=== PATIENT | male | born 1935 | race Caucasian/White ===

== ENCOUNTER 2016-05-16 09:27 | Inpatient (IN) | payer OTHER ==
--- NOTE | ~2016-05-16 | DS ---
Discharge Summary [facility] [address] [place]. [address] NAME: LINDA HINES JR : 37 STATUS : DIS IN PAT#: [id number] AGE: 80 ADM/REG DATE : 05/16/16 MR#: [id number] REPORT SERV DATE: 05/19/16 DICTATED BY: HOLLY MARTINEZ DATE: 05/18/16 REPORT STATUS : Draft TRANSCRIBED BY: MODL DATE: 05/18/16 ADMISSION DATE: 05/16/2016 DISCHARGE DATE: 05/18/2016 PRINCIPAL DIAGNOSIS: Intractable nausea and vomiting. 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 HISTORY OF PRESENT ILLNESS: Please see dictation, 05/16/2016. HOSPITAL COURSE: Admitted with intractable nausea and vomiting with severe abdominal pain. The patient had a history previously of bowel obstruction due to his metastatic malignancy. He underwent EGD and found not to have obstruction at this time. In fact, the patient tolerated advancement of his diet and advancement of his medications and actually just wished to go home. He actually had some improper behavior during the hospitalization including smoking in the hospital room and smoking in the lobby with extinguishing his cigarettes on the carpet of the lobby. Arrangements were to be made for Hospice facility; however, with that behavior, he had to be dismissed from the hospital and to arrange any further hospice care himself. As he was tolerating p.o. and p.o. pain medicines, it was felt that he had no further need for hospitalization. Anyway, I counseled his family regarding his ongoing care. He was released with Marinol and Reglan on a scheduled basis, Zofran and Phenergan p.r.n., pain medicines, and other therapies were left unchanged and hospice care will be resumed at home. GABY/ELOINA Holly Martinez M.D. / [id number] CC: Hilton Crowder M.D. Davey B. Daniel, M.D. Walter Rose, M.D.
--- NOTE | ~2016-05-16 | CN ---
Consultation Report [facility] [address] [place]. [address] NAME: LINDA HINES JR : 37 STATUS : DIS IN PAT#: [id number] AGE: 80 ADM/REG DATE : 05/16/16 MR#: [id number] REPORT SERV DATE: 05/18/16 DICTATED BY: RODRIGO TROY DATE: 05/18/16 REPORT STATUS : Draft TRANSCRIBED BY: MODL DATE: 05/18/16 CONSULTATION DATE OF CONSULTATION: 05/17/2016 Dictated by Jigna Thomas NP, dictating for Rodrigo Troy M.D. REASON FOR CONSULTATION: Request for EGD for evaluation of gastrojejunostomy patency. HISTORY OF PRESENT ILLNESS: This 80-year-old male was diagnosed with metastatic urothelial cancer after several years of invasive bladder cancer. He is status post right nephrectomy and ureterectomy in 2009. Due to metastasis and recurrence of TCC right renal bed with encroachment and duodenal obstruction, he had a palliative GJ bypass on 04/24/[address] Joby Humphrey. He has been unable to keep food and liquids down both before and after surgery. He was at home on hospice and hospice has since been withdrawn so he can be hospitalized for relief of ongoing nausea, vomiting, and suffering. The patient was last seen by Dr. Troy on 09/14/2005 for EGD for surveillance of Mari's esophagus. This was remarkable for Mari's esophagus without dysplasia on biopsies, Schatzki's ring, and small hiatal hernia. He also had a screening colonoscopy on 07/01/2012 that was normal. PAST MEDICAL HISTORY: 1. Metastatic urothelial cancer with duodenal obstruction status post palliative GJ bypass. 2. Transitional cell renal carcinoma. 3. GERD. 4. Mari's esophagus. 5. Osteoarthritis. 6. Degenerative joint disease. 7. Atrial fibrillation. 8. Chronic kidney disease. 9. Peripheral arterial disease. 10.Hypertension. PAST SURGICAL HISTORY: Status post femoral-popliteal bypass, cholecystectomy, umbilical hernia repair, multiple several stents, cystoscopy, TURBT, right nephrectomy, and gastrojejunostomy bypass surgery. ALLERGIES: GABAPENTIN. MEDICATIONS: Home medications include aspirin 325 mg daily, Decadron, diltiazem, hydrocodone 10/325 mg q.6 hours p.r.n., Levsin p.r.n., morphine p.r.n., omeprazole 20 mg daily before breakfast, ondansetron 8 mg q.8 hours p.r.n. nausea vomiting, Trental, Irisot one p.o. Consultation Report [place] [place] [address] [place]. [address] NAME: LINDA HINES JR : 37 STATUS : DIS IN PAT#: [id number] AGE: 80 ADM/REG DATE : 05/16/16 MR#: [id number] REPORT SERV DATE: 05/18/16 DICTATED BY: RODRIGO TROY DATE: 05/18/16 REPORT STATUS : Draft TRANSCRIBED BY: ELOINA DATE: 05/18/16 twice daily, lorazepam p.r.n., haloperidol p.r.n., and octreotide. Upon hospitalization Lovenox 40 mg subcu has been added daily at 2 p.m., Reglan 10 mg IV q.6 hours, octreotide 50 mcg subcu q.8 hours, and Dilaudid p.r.n. SOCIAL HISTORY: The patient smokes one pack per day of cigarettes. He denies any alcohol use. FAMILY HISTORY: Noncontributory. REVIEW OF SYSTEMS: Otherwise unremarkable for constitutional, endocrine, neurologic, psychiatric, ocular, ENT, pulmonary, cardiovascular, GI, , rheumatologic symptoms except for as noted above. PHYSICAL EXAMINATION: VITAL SIGNS: Temperature 98.1, pulse 72, respirations 16, and BP 198/86. GENERAL: The patient is drowsy but easily aroused. He is alert and oriented x3. He is chronically ill appearing. LUNGS: Clear to auscultation bilaterally. CARDIOVASCULAR: Regular rate and rhythm without murmur. ABDOMEN: Soft, mildly distended, active bowel sounds, nontender, healing incision with expected thickening in left upper quadrant, scars midline and right paramedian. No masses or hepatosplenomegaly noted. LABORATORY DATA: WBC 8.9, hemoglobin low at 10.5, platelets normal at 294, INR normal at 1.1, potassium normal at 4.8, CO2 of 23, BUN mildly elevated at 1.56. CT of the abdomen and pelvis without contrast reveals small amount of bleeding on the right in the vicinity of the previous biopsy presumably related to recent biopsy, fatty liver, postsurgical changes in the left upper quadrant, nodular changes in left lung base. IMPRESSION: 1. Persistent nausea and vomiting, status post palliative GJ bypass. 2. Advanced urothelial carcinoma with recent duodenal obstruction and gastrojejunal bypass. 3. History of atrial fibrillation. 4. History of chronic kidney disease. 5. History of peripheral arterial disease. PLAN: We will proceed with EGD today for further evaluation of patency of gastrojejunostomy. I reviewed risks and benefits of procedure with the patient. He is willing to proceed. /ELOINA Consultation Report [facility] [address] [place]. [address] NAME: LINDA HINES JR : 37 STATUS : DIS IN PAT#: [id number] AGE: 80 ADM/REG DATE : 05/16/16 MR#: [id number] REPORT SERV DATE: 05/18/16 DICTATED BY: RODRIGO TROY DATE: 05/18/16 REPORT STATUS : Draft TRANSCRIBED BY: ELOINA DATE: 05/18/16 Rodrigo Troy M.D. / [id number] CC: Hilton Crowder M.D. Richard L Yap, M.D. Christopher Lesar, M.D. Davey B. Daniel, M.D. Gordon Graham, M.D. Walter Rose, M.D. Oliver Benton III, M.D.
--- NOTE | ~2016-05-16 | OP ---
Record Of Operation [facility] [address] [place]. [address] NAME: LINDA HINES JR : 37 STATUS : ADM IN PAT#: [id number] AGE: 80 ADM/REG DATE : 05/16/16 MR#: [id number] REPORT SERV DATE: 05/18/16 DICTATED BY: RODRIGO TROY DATE: 05/17/16 REPORT STATUS : Draft TRANSCRIBED BY: MODMary DATE: 05/17/16 DATE OF PROCEDURE: 05/17/2016 PROCEDURE: Esophagogastroduodenoscopy with antral biopsies. INDICATION: Nausea and vomiting with proximal duodenal obstruction due to metastatic urothelial cancer. MEDICATIONS: Propofol. DEPARTMENT STORE GENERAL MANAGER: Rodrigo Troy M.D. COMPLICATIONS: None. HISTORY: See consult note for details. The potential risks and limitations of the examination were reviewed with the patient and his and he elected to proceed. FINDINGS: Esophagus-there was some fullness of the veins in the distal esophagus, potentially consistent with mild esophageal varices. The squamocolumnar junction was irregular consistent with his prior history of Mari's metaplasia of the esophagus. Stomach-there was a small amount of bile in the stomach, which was suctioned. There was diffuse gastritis with edema, erythema, and granularity consistent with bile-reflux. Biopsies were taken. The pylorus was patent. The site of the gastrojejunostomy was explored, and I was able to go downstream without any evidence of obstruction. It was widely patent. In the proximal stomach, there were also some prominent veins, potentially consistent with gastric varices. Duodenum-I advanced the scope through the duodenum to the 2nd and 3rd portion where there was significant extrinsic compression and obstruction past, which I was unable to advance the endoscope. IMPRESSIONS: 1. Duodenal obstruction due to metastatic urothelial cancer but status post gastric bypass. 2. Patent gastrojejunostomy. 3. Bile reflux gastritis. 4. 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 5. Mari metaplasia of the esophagus. PLAN: This does not appear to be an obstructive process. The history is one of him getting sick every time he takes his oral pain medication. He seemed to be doing much better in the hospital on an intensive anti-emetic regimen. At this point, I would see no benefit to gastrostomy tube either for feeding or for drainage, and would simply try to optimize his pain medications and antiemetic regimen. This was discussed in detail with the patient and his . Record Of Operation [facility] [address] [place] [address] NAME: LINDA HINES JR : 37 STATUS : ADM IN PAT#: [id number] AGE: 80 ADM/REG DATE : 05/16/16 MR#: [id number] REPORT SERV DATE: 05/18/16 DICTATED BY: RODRIGO TROY DATE: 05/17/16 REPORT STATUS : Draft TRANSCRIBED BY: ELOINA DATE: 05/17/16 /ELOINA Rodrigo Troy M.D. / [id number] CC: Hilton Owen M.D. Davey B. Daniel, M.D. Walter Rose, M.D.
--- NOTE | ~2016-05-16 | HP ---
History And Physical [place] [id number] [facility] [place]. [address] NAME: LINDA HINES JR : 37 STATUS : ADM IN [facility]#: [id number] AGE: 80 ADM/REG DATE : 05/16/16 MR#: [id number] REPORT SERV DATE: 05/16/16 DICTATED BY: ZEKE BECERRIL DATE: 05/16/16 REPORT STATUS : Draft TRANSCRIBED BY: MODL DATE: 05/16/16 DATE OF ADMISSION: 05/16/2016 CHIEF COMPLAINT: Nausea and vomiting. HISTORY OF PRESENT ILLNESS: The patient is a very unfortunate 80-year-old white male, who was diagnosed with a metastatic urothelial carcinoma after several years of suffering from invasive bladder cancer. Ultimately he ended up in 2009 with a right-sided nephrectomy and ureterectomy. He eventually developed some retroperitoneal metastasis and duodenal obstruction. On 04/24/2016, he underwent palliative gastrojejunal bypass with Dr. Joby Humphrey. He states he has had nausea and vomiting prior to the surgery and after the surgery, he has never really gotten better. He states he vomits everything including pills, liquids, cannot keep anything down. He states he is "miserable". He was recently placed on hospice by Dr. Edmar Hdz at home but he revoked his hospice today to see if he could come to the hospital and get some relief from the symptoms. He has had no documented fevers. He has some mild vague abdominal pain. No other real symptomatology. No fever. No diarrhea. He does have a bowel movement and his last bowel movement was about two days ago. He has tried antiemetics at home and still no relief. PAST MEDICAL HISTORY: Positive for 1. Advanced metastatic urothelial carcinoma with duodenal obstruction; retroperitoneal metastasis with history of right nephrectomy and right ureterectomy. 2. DJD. 3. Osteoarthritis. 4. GERD. 5. Atrial fibrillation. 6. 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 7. Extensive peripheral arterial disease. SOCIAL HISTORY: He continues to smoke 1 pack per day. He does not drink alcohol. FAMILY HISTORY: Negative for any type of bladder cancer. PAST SURGICAL HISTORY: He has had a cholecystectomy, appendectomy, left leg femoropopliteal bypass, AAA repair, ventral hernia repair, a right nephrectomy and ureterectomy, a gastrojejunal bypass, and a popliteal graft. HOME MEDICATIONS: Reviewed and attached. ALLERGIES: NO KNOWN DRUG ALLERGIES. REVIEW OF SYSTEMS: A full 10-point review of systems obtained with pertinent positives mentioned in the HPI. PHYSICAL EXAMINATION: VITAL SIGNS: Blood pressure 154/69, sats 95%, temperature 98.6, pulse 79, and respiratory History And Physical [address] [address] NAME: LINDA HINES JR : 37 STATUS : ADM IN PAT#: [id number] AGE: 80 ADM/REG DATE : 05/16/16 MR#: [id number] REPORT SERV DATE: 05/16/16 DICTATED BY: ZEKE BECERRIL DATE: 05/16/16 REPORT STATUS : Draft TRANSCRIBED BY: ELOINA DATE: 05/16/16 rate 16. GENERAL: Well-developed, elderly white male. HEENT: Normocephalic, atraumatic. Throat is clear. NECK: Supple. HEART: Regular rate and rhythm. LUNGS: Grossly clear. ABDOMEN: He has some scant bowel sounds. He is tender generally in all 4 quadrants but it is not significant tenderness. He is mildly distended. His legs, he has no swelling. His skin is intact. His incision on his abdomen looks good. LABORATORY AND X-RAY: H and H of 11 and 37, white count 8, and platelets 226. Sodium 137, potassium 4.3, chloride 100, CO2 of 28, BUN and creatinine of 17 and 1.66, glucose 121, and albumin 2.2. LFTs are normal other than alkaline phosphatase of 70, ALT of 85, AST of 108, and a lipase of 530. Urinalysis shows greater than 182 reds, but no whites. CT scan of the abdomen and pelvis shows no obvious obstruction and reference to what looks like he has a small amount of bleeding in the vicinity of a previous biopsy retroperitoneally and aortic graft, fatty liver, and possible liver metastasis, nodular changes in the left lung base. ASSESSMENT/PLAN: 1. Advanced urothelial carcinoma with recent duodenal obstruction and attempted gastrojejunal bypass yet with continued symptoms. We will place an NG tube to low wall suction. We will hydrate. We will place on scheduled antiemetics. We will give aggressive narcotics for pain relief. I spoke with Dr. Edmar Hdz that likely we will let off the patient. Given his current stage of cancer, he should likely go home with hospice or to a hospice center, but I think symptom control should be our goal. Dr. Edmar Hdz is going to see him later this afternoon. We will keep his NG to low wall suction; provide IV Dilaudid p.r.n.; scheduled Zofran; scheduled Reglan. Hopefully we can alleviate some of his symptomatology. 2. History of PAD. 3. History of atrial fibrillation. 4. History of CKD stable and at baseline but he is going to get hydrated overnight. 5. History of atrial fibrillation. 6. Disposition pending above aforementioned plan and workup. 7. Code status DNR. MCKAYLA/ELOINA Zeke Becerril M.D. / [id number] CC: Hilton Owen M.D.
[2016-05-16 08:45] LABS: BASOPHILS 0.2 %; BASOPHILS ABSOLUTE 0.02 10/3/uL (0.0-0.16); EOSINOPHILS 0.4 %; EOSINOPHILS ABSOLUTE 0.03 10/3/uL (0.0-0.53); ER CBC TAT 0 Hrs 03 Mins; HEMATOCRIT 36.8 % (40.0-51.0); HEMOGLOBIN 11.4 g/dL (13.6-17.8); IMMATURE GRANULOCYTES 0.1 %; IMMATURE GRANULOCYTES ABSOLUTE 0.01 10/3/uL (0.0-0.11); LYMPHOCYTES 15.8 %; LYMPHOCYTES ABSOLUTE 1.27 10/3/uL (0.67-4.30); MEAN CORPUSCULAR HEMOGLOB 21.8 pg (26.0-34.0); MEAN CORPUSCULAR VOLUME 70.5 fL (80-100); MEAN PLATELET VOLUME 9.6 fL (9.2-13.0); MONOCYTES 6.5 %; MONOCYTES ABSOLUTE 0.52 10/3/uL (0.21-1.20); NEUTROPHILS ABSOLUTE 6.21 10/3/uL (2.02-8.40); PLATELET COUNT 226 10/3/uL (150-400); RBC DISTRIBUTION WIDTH 18.8 % (12.0-16.0); RED CELL COUNT 5.22 10/6/uL (4.7-6.1); WHITE BLOOD CELLS 8.1 10/3/uL (4.5-10.5)
[2016-05-16 08:46] LABS: MANUAL DIFF NO %
[2016-05-16 08:54] LABS: INTERNATIONAL NORMAL RATI 1.1 UNITS (-); PROTIME (NOT ORD) 14.4 SEC (12.0-14.5)
[2016-05-16 08:59] LABS: ALBUMIN 2.2 G/DL (3.5-5.0); BUN (BLOOD UREA NITROGEN) 17 MG/DL (6-23); CALCIUM, SERUM 8.3 MG/DL (8.5-10.4); CHLORIDE, SERUM 100 MMOL/L (96-112); CO2 (CARBON DIOXIDE) 28 MMOL/L (24-34); CREATININE 1.64 MG/DL (0.70-1.30); GFR AFRICAN AMERICAN 45 ML/MIN (>=60); GFR NON AFRICAN AMERICAN 39 ML/MIN (>=60); GLUCOSE, SERUM 121 MG/DL (60-99); POTASSIUM, SERUM 4.3 MMOL/L (3.5-5.3); SGOT(AST) 108 U/L (5-40); SGPT(ALT) 85 U/L (5-65); SODIUM, SERUM 137 MMOL/L (135-148)
[2016-05-16 09:00] LABS: A/G RATIO 0.4 (0.7-1.9); ALKALINE PHOSPHATASE 470 U/L (45-117); GLOBULIN 4.9 G/DL (2.5-4.1); TOTAL BILIRUBIN 1.2 MG/DL (0-1.2); TOTAL PROTEIN 7.1 G/DL (6.0-8.5)
[~2016-05-16 09:27] MED LIST: "\\\"BLOOD PRESSURE MED\\\"" PO; AMARYL2 PO; ASA5GR PO; ASABAYER PO; ASAEC PO; ATV.5 PO; ATV1 PO; AVAP150 PO; BACDS PO; C2; C2 PO; C5 PO; COUMADIN4 MG PO; DITRO5 PO; LOP25 PO; LORTAB10 PO; LOVENOX SC; LOVENOX60 SC; LOVENOX80 SC; MULTIVITAMI1 PO; NORCO1 TA2 PO; NORCO1 TAB PO; NORV10 PO; PLAVIX PO; PRAVACHOL40 MG PO; PRILO PO; TAZTIA X4 PO; TRENTAL400 PO; ZESTORETIC1 TA1 PO
[2016-05-16 09:47] LABS: WBC (NOT ORDERED) (RFLEX) 0 (0-5)
[2016-05-16 10:06] LABS: ASCORBIC ACID (UR NOT ORDER) NEG (NEG); BILIRUBIN, URINE NEGATIVE (NEG); ER URINALYSIS TAT 0 Hrs 20 Mins; KETONE, URINE NEGATIVE (NEG); LEUKOCYTE ESTERASE(NOT OR NEG (NEG); NITRITE (URINE) NEG (NEG)
[2016-05-16] MEDS ORDERED: TAZTIA X4 PO (10:17)
[2016-05-16] MEDS ORDERED: PRILO PO (10:30)
[2016-05-16] MEDS ORDERED: ZOFRAN8 PO (10:30)
[2016-05-16] MEDS ORDERED: LORAZEPAM 1 MG SC (10:31)
[2016-05-16] MEDS ORDERED: TRENTAL400 PO (10:31)
[2016-05-16] MEDS ORDERED: ASA5GR PO (10:31)
[2016-05-16] MEDS ORDERED: HALOPERIDOL 1 MG SC (10:32)
[2016-05-16] MEDS ORDERED: NORCO1 TAB PO (10:33)
[2016-05-16] MEDS ORDERED: MORPHINE SUL5 MG/ML SC (10:33)
[2016-05-16] MEDS ORDERED: LEVSINTAB SL (10:34)
[2016-05-16] MEDS ORDERED: SENTAB PO (10:34)
[2016-05-16] MEDS ORDERED: DEX4 PO (10:35)
[2016-05-16] MEDS ORDERED: OCTREOTIDE SC (10:36)
[2016-05-17 06:16] LABS: BASOPHILS 0.2 %; BASOPHILS ABSOLUTE 0.02 10/3/uL (0.0-0.16); EOSINOPHILS 0.5 %; EOSINOPHILS ABSOLUTE 0.04 10/3/uL (0.0-0.53); HEMATOCRIT 34.5 % (40.0-51.0); HEMOGLOBIN 10.5 g/dL (13.6-17.8); IMMATURE GRANULOCYTES 0.2 %; IMMATURE GRANULOCYTES ABSOLUTE 0.02 10/3/uL (0.0-0.11); LYMPHOCYTES 17.3 %; LYMPHOCYTES ABSOLUTE 1.53 10/3/uL (0.67-4.30); MEAN CORPUS HGB CONC 30.4 g/dL (32.0-36.0); MEAN CORPUSCULAR VOLUME 68.9 fL (80-100); MEAN PLATELET VOLUME 10.2 fL (9.2-13.0); MONOCYTES 5.3 %; MONOCYTES ABSOLUTE 0.47 10/3/uL (0.21-1.20); NEUTROPHILS 76.5 %; NEUTROPHILS ABSOLUTE 6.77 10/3/uL (2.02-8.40); RBC DISTRIBUTION WIDTH 19.1 % (12.0-16.0); RED CELL COUNT 5.01 10/6/uL (4.7-6.1); WHITE BLOOD CELLS 8.9 10/3/uL (4.5-10.5)
[2016-05-17 06:19] LABS: MANUAL DIFF NO %; PLATELET COUNT 294 10/3/uL (150-400)
[2016-05-17 06:22] LABS: BUN (BLOOD UREA NITROGEN) 17 MG/DL (6-23); CALCIUM, SERUM 7.9 MG/DL (8.5-10.4); CHLORIDE, SERUM 105 MMOL/L (96-112); CREATININE 1.56 MG/DL (0.70-1.30); GFR AFRICAN AMERICAN 48 ML/MIN (>=60); GFR NON AFRICAN AMERICAN 42 ML/MIN (>=60); POTASSIUM, SERUM 4.8 MMOL/L (3.5-5.3); SODIUM, SERUM 138 MMOL/L (135-148)
[2016-05-17 06:24] LABS: CO2 (CARBON DIOXIDE) 23 MMOL/L (24-34); GLUCOSE, SERUM 87 MG/DL (60-99)
[2016-05-17 07:13] LABS: PLATELET ESTIMATE ADQ (ADEQUATE)
[2016-05-17 07:14] LABS: ANISOCYTOSIS 1+ (5-10/OIF) (0-5/OIF)
== END 2016-05-18 12:23 | disposition hospice, home (50) | DRG 381 ==
LOC: ER 09:27 → 5SO 10:33
PROVIDERS: Emergency Medicine; Internal Medicine; Internal Medicine Gastroenterology
PROC: 0DB68ZX Excision of Stomach, Via Natural or Artificial Opening Endoscopic, Diagnostic (ICD-10-PCS; principal; 2016-05-17 12:57)
DX: K31.5 Obstruction of duodenum (principal); C78.6 Secondary malignant neoplasm of retroperitoneum and peritoneum; I85.00 Esophageal varices without bleeding; K21.9 Gastro-esophageal reflux disease without esophagitis; I73.9 Peripheral vascular disease, unspecified; Z66 Do not resuscitate; F17.210 Nicotine dependence, cigarettes, uncomplicated; I12.9 Hypertensive chronic kidney disease with stage 1 through stage 4 chronic kidney disease, or unspecified chronic kidney disease; N18.9 Chronic kidney disease, unspecified; Z79.82 Long term (current) use of aspirin; Z85.51 Personal history of malignant neoplasm of bladder
CPT/HCPCS: 74176; 80048; 80053; 81001; 83690; 85025; 85610; 88305; 96374; 99285; A9270-GY; J1170; J2405; J2765